=== PATIENT | female | born 1975 | race Caucasian/White ===

== ENCOUNTER 2020-12-30 17:38 | Inpatient (IN) ==
[2020-12-30] MEDS ORDERED: KETOROLAC 30 MG/1 ML VIAL IV STA (19:40)
[2020-12-30] MEDS ORDERED: ONDANSETRON 4 MG/2 ML VIAL IV STA (19:40)
[2020-12-30] MEDS ORDERED: SODIUM CHLORIDE 0.9% 1,000 ML IV STA (19:40)
[2020-12-30 20:30] LABS: Basophils # 0.1 10*3/uL (0.0-0.2); Basophils % 0.3 % (0.0-0.8); Eosinophils # 0.1 10*3/uL (0.0-0.87); Eosinophils % 0.3 % (0.00-10.9); Hematocrit 46.1 VOL% (35.7-47.0); Hemoglobin 15.2 GM/DL (12.0-16.0); Immature Granulocytes % 0.3 %; Immature Granulocytes Absolute 0.04 #; Lymphocytes # 4.4 10*3/uL (1.4-4.0); Lymphocytes % 29.9 % (21.3-54.2); Mean Platelet Volume 10.5 FL (9.6-12.0); Monocytes % 5.5 % (1.7-12.7); Neutrophils % 63.7 % (38.7-73.9); Platelet Count 266 T/CUMM (130-400); Red Blood Count 5.01 MC/CUMM (3.8-5.5); Red Cell Distribution Width 13.6 % (9.3-17.3); White Blood Count 14.6 T/CUMM (4-12)
[2020-12-30 20:52] LABS: Alanine Aminotransferase 104 U/L (13-56); Albumin 4.3 G/DL (3.4-5.0); Alkaline Phosphatase 103 U/L (45-117); Aspartate Amino Transferase 50 U/L (0-37); Bilirubin,Total < 0.39 MG/DL (0.20-1.00); Blood Urea Nitrogen 12 MG/DL (7-18); Calcium 10.2 MG/DL (8.5-10.1); Carbon Dioxide 27 MMOL/L (21-32); Estimated Glom Filtration Rate 74 ML/MIN; Glucose 119 MG/DL (74-106); Osmolality,Calculated 281.3 MOS/KG (273-304); Potassium 4.2 MMOL/L (3.5-5.1); Sodium 141 MMOL/L (136-145); Total Protein 8.5 G/DL (6.4-8.2)
[2020-12-30 21:14] LABS: Bilirubin,Urine Negative (Negative); Blood, Urine Small mg/dL (Negative); Glucose,Urine (UA) Negative (Negative); Ketones,Urine Negative (Negative); Nitrite,Urine Negative (Negative); Protein,Urine Negative; RBC,Urine 2 /HPF (0-4); Squamous Epithelial Cell,Urine Occasional /HPF (0-10); Urine Appearance Slightly Hazy (Clear); Urine Color Yellow (Yellow); Urine Specific Gravity 1.012 (1.001-1.035); Urine Urobilinogen < 2.0 EU/DL (0.2-1.0)
[2020-12-30] MEDS ORDERED: PIPERACILLIN/TAZOBACTAM 3,375 MG in SODIUM CHLORIDE 0.9% 100 ML IV STA (22:18)
[2020-12-30] MEDS ORDERED: ONDANSETRON 4 MG/2 ML VIAL IV PRN (22:52)
[2020-12-31] MEDS: fentaNYL 100 MCG/2 ML VIAL IV PRN ×4 (01:27→21:55)
[2020-12-31] MEDS: DEXTROSE 5% NACL 0.45% 1,000 ML IV SCH ×4 (01:28→16:33)
[2020-12-31] MEDS: PIPERACILLIN/TAZOBACTAM 3,375 MG in SODIUM CHLORIDE 0.9% 100 ML IV SCH ×3 (06:06→23:20)
[2020-12-31 06:21] LABS: Basophils % 0.4 % (0.0-0.8); Eosinophils # 0.2 10*3/uL (0.0-0.87); Eosinophils % 1.7 % (0.00-10.9); Hematocrit 43.3 VOL% (35.7-47.0); Hemoglobin 14.1 GM/DL (12.0-16.0); Immature Granulocytes % 0.3 %; Immature Granulocytes Absolute 0.03 #; Lymphocytes # 4.6 10*3/uL (1.4-4.0); Lymphocytes % 46.9 % (21.3-54.2); Mean Corpuscular HGB Conc 32.6 GM/DL (32-36); Mean Corpuscular Volume 91.9 FL (87-102); Mean Platelet Volume 10.9 FL (9.6-12.0); Monocytes % 5.6 % (1.7-12.7); Neutrophils % 45.1 % (38.7-73.9); Platelet Count 226 T/CUMM (130-400); Red Blood Count 4.71 MC/CUMM (3.8-5.5); Red Cell Distribution Width 13.6 % (9.3-17.3); White Blood Count 9.9 T/CUMM (4-12)
[2020-12-31 06:54] LABS: Albumin 3.4 G/DL (3.4-5.0); Bilirubin,Total 0.4 MG/DL (0.20-1.00); Osmolality,Calculated 277.5 MOS/KG (273-304); Potassium 3.6 MMOL/L (3.5-5.1); Total Protein 7.1 G/DL (6.4-8.2)
[2020-12-31] MEDS ORDERED: TISSUE ADHESIVE 1 EACH APPLICATOR TOP ONE (09:25)
[2020-12-31] MEDS ORDERED: LIDOCAINE 1%/EPI INJ 20 ML VIAL ONE (09:25)
[2020-12-31] MEDS ORDERED: BUPIVACAINE MPF 0.25% 30 ML VIAL ONE (09:25)
[2020-12-31] MEDS ORDERED: DEXAMETHASONE 4 MG/1 ML VIAL ONE ×2 (09:47→10:24)
[2020-12-31] MEDS ORDERED: LIDOCAINE 2% 5 ML VIAL ONE (09:47)
[2020-12-31] MEDS ORDERED: ONDANSETRON 4 MG/2 ML VIAL ONE (09:47)
[2020-12-31] MEDS ORDERED: propofoL 200 MG/20 ML VIAL IV ONE (09:47)
[2020-12-31] MEDS ORDERED: ROCURONIUM 50 MG/5 ML VIAL IV ONE (09:47)
[2020-12-31] MEDS ORDERED: SEVOFLURANE 1 UNIT/15 MINUTE INH ONE ×4 (09:47→11:02)
[2020-12-31] MEDS ORDERED: fentaNYL 100 MCG/2 ML VIAL ONE (09:47)
[2020-12-31] MEDS ORDERED: MIDAZOLAM 2 MG/2 ML VIAL ONE (09:47)
[2020-12-31] MEDS ORDERED: ePHEDrine 50 MG/ML VIAL ONE (10:15)
[2020-12-31] MEDS ORDERED: PHENYLEPHRINE 1 MG/10 ML SYRINGE IV ONE ×2 (10:15→10:24)
[2020-12-31] MEDS ORDERED: GLYCOPYRROLATE 0.4 MG/2 ML VIAL ONE (11:02)
[2020-12-31] MEDS ORDERED: KETOROLAC 30 MG/1 ML VIAL ONE (11:03)
[2020-12-31] MEDS ORDERED: NEOSTIGMINE 10 MG/10 ML VIAL ONE (11:03)
[2020-12-31] MEDS ORDERED: ACETAMINOPHEN INJ 1,000 MG/100 ML VIAL IV ONE (11:03)
[2020-12-31] MEDS ORDERED: ONDANSETRON 4 MG/2 ML VIAL IV PRN (11:35)
[2020-12-31] MEDS ORDERED: HYDROmorphone 2 MG/1 ML VIAL IV PRN (11:35)
[2020-12-31] MEDS ORDERED: HYDROmorphone 2 MG/1 ML VIAL ONE (11:37)
[2020-12-31] MEDS: lisinopriL 20 MG TABLET PO SCH ×2 (13:48→21:55)
[2020-12-31] MEDS: PANTOPRAZOLE 40 MG VIAL IV SCH (13:52)
[2020-12-31] MEDS ORDERED: IBUPROFEN 600 MG TABLET PO PRN (17:51)
[2020-12-31] MEDS: CARBAMAZEPINE 100 MG PO SCH (21:55)
[2021-01-01] MEDS: DEXTROSE 5% NACL 0.45% 1,000 ML IV SCH (03:29)
[2021-01-01] MEDS: PIPERACILLIN/TAZOBACTAM 3,375 MG in SODIUM CHLORIDE 0.9% 100 ML IV SCH (06:23)
[2021-01-01] MEDS: fentaNYL 100 MCG/2 ML VIAL IV PRN (08:25)
[2021-01-01] MEDS: lisinopriL 20 MG TABLET PO SCH (08:26)
[2021-01-01] MEDS: PANTOPRAZOLE 40 MG VIAL IV SCH (08:26)
[2021-01-01 08:28] VITALS: BP 120/77
[2021-01-01] MEDS: CARBAMAZEPINE 100 MG PO SCH (08:52)
== END 2021-01-01 11:16 | disposition home or self-care (01) | DRG 418 ==
LOC: N.ED 17:38 → N.EDINP 22:51 → N.3E 12-31 00:57
PROVIDERS: ADMIT Surgery; ATTEND Surgery
PROC: LAPCHOL (2020-12-31 09:50)